=== PATIENT | female | born 1950 | race Caucasian/White ===

== ENCOUNTER → 2017-08-30 | Outpatient (CLI) | payer OTHER, MEDICARE ==
[~2017-08-30] MED LIST: FLUTR; LOSA-165 PO
== END ==
LOC: AUD 09:50
PROVIDERS: ATTEND Otolaryngology
DX: H72.91 Unspecified perforation of tympanic membrane, right ear (principal)
CPT/HCPCS: 92557; 92567

== ENCOUNTER 2018-05-01 00:54 | Day surgery (SDC) | payer MEDICARE, OTHER ==
[~2018-05-01] VITALS: Ht 158.8 cm; Wt 76.7 kg
[2018-05-01] VITALS (7 sets, daily range): BP systolic 119–170; BP diastolic 68–104
[~2018-05-01 00:54] MED LIST changes: +ASPI81TA39 PO; +BIOT10004 PO; +CALC-1046; +CHOL200074 PO; +LEVO2.5S7 PO; +OMEG10007; +TURM538C; +VITA150T2 PO; +VITA15DR PO
[2018-05-01] MEDS ORDERED: LIDOCAINE/SOD BICARB 8.4% SYR ID ONE (07:15)
[2018-05-01] MEDS ORDERED: NORMOSOL R SOLN(*) 1000 ML BAG 1,000 ML IV PRN (07:15)
[2018-05-01] MEDS ORDERED: PROPOFOL EMUL(*) 10MG/ML 20 ML 60 ML ONE (07:43)
[2018-05-01] MEDS ORDERED: LIDOCAINE MPF 1% 5 ML VIAL ONE (07:43)
--- NOTE | 2018-05-01 08:57 | Short(Outpt) Discharge Summary ---
Discharge Summary Reason for Hosp/Final Diag: (1) Family history of colon cancer Hospital Course & Plan: Colonoscopy completed without problems. Departure Discharge to: Home, Self Care Discharge Instructions Home Meds Reported Medications Aspirin (JA CHEWABLE) 81 Mg Tab.chew, 81 MG PO DAILY, TAB.CHEW 04/18/18 Vitamin E (Dl,Tocopheryl Acet) (VITAMIN E) Unknown Strength Drops, PO 04/09/18 Cholecalciferol (Vitamin D3) (VITAMIN D-3) Unknown Strength Capsule, PO, CAPSULE 04/09/18 Calcium Carbonate (Calcium) Unknown Strength Tab.chew 04/09/18 Turmeric Root Extract (Turmeric) Unknown Strength Capsule 04/09/18 Vitamin B Complex & Vit C No.4 (SUPER B COMPLEX) Unknown Strength Tablet, PO 04/09/18 Biotin (Biotin) Unknown Strength Tab.chew, 81175 MG PO DAILY 04/09/18 [place]-3/Dha/Epa/Fish Oil (Fish Oil 1,000 mg Softgel) Unknown Strength Capsule 04/09/18 Levocetirizine Dihydrochloride (XYZAL) Unknown Strength Solution, 5 MG PO DAILY 04/09/18 Fluticasone Propionate (Flonase) 16 Gm [place], 0 NA QDAY, 0 Refills SPRAY 2 SPRAYS IN EACH NOSTRIL 05/02/10 Losartan/Hydrochlorothiazide (Hyzaar 100/25 Tablet) 1 Tab Tablet, 1 TAB PO QDAY, 0 Refills 05/02/10 Diet: Regular Activity: As Tolerated Special Instructions: Your colonoscopy was completed without any problems and your prep was excellent (Good Job!!). I didn't find any polyps or any other abnormalities. I recommend that your next colonoscopy be in 5 years due to your family history. Copies to: MIRLANDE LEMOS ; VIMAL URIBE MD May 01, 2018 08:57
== END 2018-05-01 09:35 | disposition home or self-care (01) ==
LOC: OR 00:54
PROVIDERS: ATTEND Surgery
DX: Z12.11 Encounter for screening for malignant neoplasm of colon (principal)
CPT/HCPCS: 00812; G0121; J2001; J2704